=== PATIENT | female | born 1995 | race American Indian/Alaskan Native ===

== ENCOUNTER 2022-06-04 16:19 | Emergency (ER) | payer SELFPAY ==
[2022-06-04 19:02] VITALS: BP 112/74
--- NOTE | 2022-06-04 22:11 | Emergency Department Report ---
ED ENT HPI - General Chief complaint: Earache Stated complaint: EAR INFECTION Time Seen by Provider: 06/04/22 20:47 Source: patient Mode of arrival: Ambulatory Limitations: No Limitations - History of Present Illness MD complaint: ear pain -: Sudden, days(s) (2) Location: L ear Severity: moderate Quality: constant Consistency: constant Improves with: none Worsens with: none Context- Ear: other (No recent swimming or travel does use Q-tips excessively and states that she takesRather vigorously and thinks he may have been the culprit to the nidus of the infection) Associated Symptoms: denies: cough, gum swelling, toothache, sore throat, tinnitus, discharge from ear, rhinorrhea - Related Data Previous Rx's Medication Instructions Recorded Last Taken Type Ciprofloxacin HCl/Dexameth 2 drop BID #7.5 ml 06/04/22 Unknown Rx [Ciprodex Otic Suspension] Allergies Allergy/AdvReac Type Severity Reaction Status Date / Time No Known Allergies Allergy Verified 06/04/22 18:59 ED Dental HPI - General Chief complaint: Earache Stated complaint: EAR INFECTION Time Seen by Provider: 06/04/22 20:47 Source: patient Mode of arrival: Ambulatory Limitations: No Limitations - Related Data Previous Rx's Medication Instructions Recorded Last Taken Type Ciprofloxacin HCl/Dexameth 2 drop BID #7.5 ml 06/04/22 Unknown Rx [Ciprodex Otic Suspension] Allergies Allergy/AdvReac Type Severity Reaction Status Date / Time No Known Allergies Allergy Verified 06/04/22 18:59 ED Review of Systems ROS: Stated complaint: EAR INFECTION Other details as noted in HPI Comment: All other systems reviewed and negative ED Past Medical Hx - Past Medical History Previous Medical History?: No - Surgical History Past Surgical History?: No - Medications Home Medications: Home Medications Medication Instructions Recorded Confirmed Last Taken Type Ciprofloxacin HCl/Dexameth 2 drop BID #7.5 ml 06/04/22 Unknown Rx [Ciprodex Otic Suspension] ED Physical Exam - General Limitations: No Limitations General appearance: alert, in no apparent distress - Head Head exam: Present: atraumatic, normocephalic - Eye Eye exam: Present: normal appearance - ENT ENT exam: Present: mucous membranes moist, other (She has tragal tenderness with palpation as well as swelling to the ear canal with some exudate present. Her tympanic membrane is intact. There is no discomfort to the temporomandibular mandibular joint. The posterior pharynx is patent and clear airway showed no erythema or exudate no evidence of) - Neck Neck exam: Present: normal inspection - Respiratory Respiratory exam: Present: normal lung sounds bilaterally. Absent: respiratory distress - Cardiovascular Cardiovascular Exam: Present: regular rate, normal rhythm. Absent: systolic murmur, diastolic murmur, rubs, gallop - GI/Abdominal GI/Abdominal exam: Present: soft, normal bowel sounds - Extremities Exam Extremities exam: Present: normal inspection - Back Exam Back exam: Present: normal inspection - Neurological Exam Neurological exam: Present: alert, oriented X3 - Psychiatric Psychiatric exam: Present: normal affect, normal mood - Skin Skin exam: Present: warm, dry, intact, normal color. Absent: rash ED Course Vital Signs 06/04/22 19:00 Temperature 98.4 F Pulse Rate 93 H Respiratory 16 Rate Blood Pressure 112/74 [Right] O2 Sat by Pulse 100 Oximetry Critical care attestation.: If time is entered above; I have spent that time in minutes in the direct care of this critically ill patient, excluding procedure time. ED Disposition Clinical Impression: Otitis externa Disposition: HOME / SELF CARE / HOMELESS Is pt being admited?: No Does the pt Need Aspirin: No Condition: Stable Instructions: Ear Drops, Adult, Otitis Externa Additional Instructions: Seen in lab emerged from today for ear infection found to have otitis externa of an exudative origin. You are treated with Ciprodex rather than Cortisporin due to the appearance of the infection and likely pseudomonal involvement. Please take medication as prescribed be sure to follow-up in 3 to 4 days to reevaluate your ear canal and your your eardrum to ensure that no spontaneous rupture is or has occurred Prescriptions: Ciprofloxacin HCl/Dexameth [Ciprodex Otic Suspension] 2 drop BID #7.5 ml Referrals: [facility] [Provider Group] - 3-5 Days
== END 2022-06-04 22:51 | disposition home or self-care (01) ==
LOC: ED 16:19
DX: H60.92 Unspecified otitis externa, left ear (principal); Z79.899 Other long term (current) drug therapy
CPT/HCPCS: 99282